=== PATIENT | female | born 1975 | race American Indian/Alaskan Native ===

== ENCOUNTER 2018-01-19 08:43 | Outpatient (CLI) | payer BC ==
--- NOTE | 2018-01-19 15:01 | Magnetic Resonance Report ---
BILATERAL BREAST MRI WITHOUT AND WITH CONTRAST: 01/19/18 08:43:00 CLINICAL: Family history of breast cancer and a left retroareolar asymmetry on a recent mammogram. COMPARISON:[facility] bilateral mammogram 05/12/17 and left breast ultrasound 10/03/17. TECHNIQUE: Axial 1.0-mm T1 without, axial high resolution 2.0-mm T2 and axial 1.0-mm dynamic Vibrant high-resolution postcontrast T1 fat saturation sequences on a 1.5 Cathleen magnet. The examination was performed with an 8 channel dedicated [place] breast coil. Post processing with CAD and subtraction was performed on an itBit workstation. 15.0 cc of Multihance was injected for the contrast portion of the exam. Consent was obtained prior to the administration of the contrast. FINDINGS: Right: Minimal background parenchymal enhancement. No mass or suspicious enhancement. No suspicious lymph nodes. Left: Minimal background parenchymal enhancement. No mass or suspicious enhancement. A 5 mm subareolar cyst at 7 o'clock correlates with a subareolar benign cyst identified by ultrasound at 6 o'clock. A 4 mm cyst at 6 o'clock 4.5 cm from the nipple has no apparent mammographic or ultrasound correlate. Normal parenchymal structures are identified in the retroareolar left breast at 6 o'clock where an asymmetry is marked on the mammogram. No suspicious lymph nodes. IMPRESSION: Negative study with a couple of subcentimeter benign cysts of the left breast at 7 o'clock subareolar and at 6 o'clock 4.5 cm from the nipple. The study is otherwise negative. RECOMMENDATION: Routine mammographic screening. BI-RADS 2 - - Benign
== END 2018-01-19 08:44 | disposition home or self-care (01) ==
LOC: SPVIMAG 08:43
PROVIDERS: ATTEND Surgery
DX: R92.8 Other abnormal and inconclusive findings on diagnostic imaging of breast (principal); Z80.3 Family history of malignant neoplasm of breast
CPT/HCPCS: A9577; C8908; 77059

== ENCOUNTER 2018-05-15 08:06 | Outpatient (CLI) | payer BC ==
--- NOTE | 2018-05-15 08:58 | Mammography Report ---
Bilateral mammogram a spot compression magnification of density upper outer right breast will compare to 05/12/17. CAD study utilized. Findings: Predominance adipose tissue bilaterally. Benign density left breast. New density upper outer right breast without microcalcification. Spot compression reveals effacement of the density. No mass is seen. Normal axilla. Impression: Benign findings. Annual followup recommended. BI-RADS CATEGORY: 2 = Benign ACR BI-RADS MAMMOGRAPHIC CODES: 0 = Needs additional imaging evaluation; 1 = Negative; 2 = Benign; 3 = Probably benign; 4 = Suspicious; 5 = Malignant; 6 = Known biopsy-proven malignancy COMMENT: 1. Dense breast tissue, i.e., adenosis, fibrocystic changes, etc., may obscure an underlying neoplasm. 2. Approximately 10% of cancers are not detected with mammography. 3. A negative mammography report should not delay biopsy if a clinically suspicious mass is present. COMMENT: Patient follow-up letters are generated in [employer].
== END 2018-05-15 08:07 | disposition home or self-care (01) ==
LOC: SPVWC 08:06
PROVIDERS: ATTEND Surgery
DX: Z12.31 Encounter for screening mammogram for malignant neoplasm of breast (principal)
CPT/HCPCS: 77067

== ENCOUNTER 2018-12-04 08:51 | Outpatient (CLI) | payer BC ==
--- NOTE | 2018-12-04 09:35 | Ultrasound Report ---
TARGETED LEFT BREAST ULTRASOUND HISTORY: Follow-up of a 6 mm retroareolar cyst at 6:00 COMPARISON: 10/03/[address] Espinoza FINDINGS: Focused sonographic evaluation upon the retroareolar 6:00 location of the right breast demo nstrates an oval relatively smooth complex cyst versus solid mass measuring 6 x 5 x 6 mm. It has homo geneous internal echoes and is slightly larger and more round than on the last exam. IMPRESSION A suspicious 6 mm complex cyst versus solid mass at 6:00 retroareolar. Recommend ultrasound-guided ne edle aspiration/biopsy. BIRADS 4: Suspicious abnormality. Signer Name: Lamine Barron MD Signed: 12/04/2018 9:31 AM Workstation Name: [id number]
== END 2018-12-04 08:52 | disposition home or self-care (01) ==
LOC: SPVWC 08:51
PROVIDERS: ATTEND Surgery
DX: R92.8 Other abnormal and inconclusive findings on diagnostic imaging of breast (principal)

== ENCOUNTER 2018-12-18 10:38 | Outpatient (CLI) | payer BC ==
--- NOTE | 2018-12-18 12:10 | Mammography Report ---
LEFT DIGITAL DIAGNOSTIC CLINICAL: For clip placement after ultrasound-guided biopsy. COMPARISON: 05/15/2018 FINDINGS: A biopsy clip is now identified and correlates with the cyst identified at 6:00. IMPRESSION: Concordant clip deployment. Signer Name: Lamine Barron MD Signed: 12/18/2018 12:06 PM Workstation Name: [id number]
--- NOTE | 2018-12-18 12:14 | Ultrasound Report ---
ULTRASOUND-GUIDED NEEDLE CORE BIOPSY LEFT BREAST WITH CLIP PLACEMENT CLINICAL: A mass at 6:00 retroareolar. FINDINGS: The procedure was explained to the patient and informed consent was obtained. Ultrasound demonstrated the previously identified oval smooth hypoechoic lesion at 6:00 retroareolar. It measures 8 x 4 x 7 mm and is more oval than on the last exam.. I marked the breast with a felt tip marker and a timeout was called. The skin was prepped with Chloro -Prep and anesthetized with 1% lidocaine. First attempt to aspirate the lesion with an 18-gauge needle. However, no fluid could be aspirated. N eedle core biopsy was then performed through small dermatotomy using ultrasound guidance, 2% lidocain e with epinephrine for deep anesthesia and a 14-gauge Achieve biopsy device. 4 cores were obtained an d placed in formalin. The lesion showed no collapse with biopsy. A clip was deployed within the lesio n. The patient tolerated the procedure well and there were no apparent complications. Hemostasis was ach ieved with minimal effort and a sterile dressing was applied. A post procedure mammogram demonstrated concordant clip deployment. She left the department in good c ondition and was given instructions for wound care and follow-up. IMPRESSION: Uncomplicated ultrasound guided needle core biopsy with clip placement left breast. Signer Name: Lamine Barron MD Signed: 12/18/2018 12:09 PM Workstation Name: [id number]
== END 2018-12-18 10:39 | disposition home or self-care (01) ==
LOC: SPVWC 10:38
PROVIDERS: ATTEND Surgery
DX: N63.24 Unspecified lump in the left breast, lower inner quadrant (principal); R92.8 Other abnormal and inconclusive findings on diagnostic imaging of breast
CPT/HCPCS: 19083; 77065; 88305; A4648

== ENCOUNTER 2019-01-16 06:06 | Day surgery (SDC) | payer BC ==
[~2019-01-16 06:06] MED LIST: BUPIVACAINE/PF (0.25%) 2.5 MG/ML 30 ML VIAL INFILTRATI ONE; LACTATED RINGERS 1,000 ML IV SCH; LIDOCAINE (1%) 10 MG/1 ML VIAL 20 ML MDV INFILTRATI ONE; MIDAZOLAM 2 MG/2 ML INJ IV NR; SODIUM CHLORIDE 0.9% IRR 1,500 ML BOTTLE IR ONE; ceFAZolin/Water 2 GM/20 ML 2 GM/20 ML SYRINGE IV NR
[2019-01-16] MEDS ORDERED: BACTERIOSTATIC SODIUM CHLORIDE 0.9% 30 ML VIAL INFILTRATI ONE (06:54)
[2019-01-16] MEDS ORDERED: ONDANSETRON 4 MG/2 ML INJ IV PRN (07:22)
--- NOTE | 2019-01-16 07:23 | Anesthesia Day of Surgery ---
Anesthesia Day of Surgery - Day of Surgery Patient Examined: Yes Patient H&P Reviewed: Yes Patient is NPO: Yes
--- NOTE | 2019-01-16 07:26 | Anesthesia Consultation ---
Anesthesia Consult and Med Hx Date of service: 01/16/19 - Airway Anesthetic Teeth Evaluation: Chipped ROM Head & Neck: Adequate Mental/Hyoid Distance: Adequate Mallampati Class: Class II Intubation Access Assessment: Good - Pre-Operative Health Status ASA Pre-Surgery Classification: ASA2 Proposed Anesthetic Plan: General - Central Nervous System Hx Psychiatric Problems: Yes (Anx) - Hematic Hx Sickle Cell Disease: Yes (TRAIT) - Other Systems Hx Alcohol Use: No Hx Substance Use: No Hx Cancer: No
[2019-01-16] MEDS ORDERED: ONDANSETRON 4 MG/2 ML INJ ONE (07:42)
[2019-01-16] MEDS ORDERED: fentaNYL 100 MCG/2 ML INJ ONE (07:42)
[2019-01-16] MEDS ORDERED: dexAMETHasone 20 MG/5 ML VIAL ONE (07:42)
[2019-01-16] MEDS ORDERED: LIDOCAINE MPF (2%) 20 MG/1 ML VIAL 5 ML ONE (07:42)
[2019-01-16] MEDS ORDERED: LIDOCAINE (1%) 10 MG/1 ML VIAL 20 ML MDV ONE (07:42)
[2019-01-16] MEDS ORDERED: PROPOFOL 200 MG/20 ML VIAL IV ONE (07:43)
[2019-01-16] MEDS ORDERED: LIDOCAINE (1%) 10 MG/1 ML VIAL 20 ML MDV INFILTRATI NR (08:12)
[2019-01-16] MEDS ORDERED: BUPIVACAINE/PF (0.25%) 2.5 MG/ML 30 ML VIAL INFILTRATI ONE ×2 (08:18→10:15)
[2019-01-16] MEDS ORDERED: LIDOCAINE (1%) 10 MG/1 ML VIAL 20 ML MDV INFILTRATI ONE (10:15)
[2019-01-16] MEDS ORDERED: BACITRACIN ZINC OINT 28.4 GM TP ONE ×2 (10:19→10:20)
[2019-01-16] MEDS ORDERED: SODIUM CHLORIDE 0.9% IRR 1,500 ML BOTTLE IR ONE (10:21)
--- NOTE | 2019-01-16 10:32 | Operative Report ---
Operative Report Operative Report: Operative Report: Date of Service: December 10, 2018 Preoperative diagnosis: Left breast radial scar of the lower outer quadrant/SA Postoperative diagnosis: Same Procedure: Left breast mass excisional biopsy of the lower outer quadrant/SA Surgeon: Vidya Espinoza M.D. Refrigerator Tester: Chyna Kingston M.D. Anesthesia: General Findings: Left breast radial scar mass excisional biopsy; radiograph specimen with clip and wire present Complications: None Drains: None Estimated blood loss: Minimal Disposition: PACU in good condition Indication for operative procedure: This is a 43-year-old lady with recent abnormal left breast ultrasound of suspicious mass with findings of increase in size with recommendations for biopsy. Ultrasound guided needle core biopsy was performed by Dr. Barron with findings of radial scar. Recommendations were to proceed with an excisional biopsy given benign high risk lesion for breast cancer and to obtain a definitive diagnosis. Patient wished to proceed with the above procedure. The patient was procedure in detail: Radiology placed wire to localize area of concern at location of clip around 6:00 SA. The patient was taken to the operating room and was laid supine. General anesthesia was administered. The left breast was prepped and draped in the normal sterile operative fashion. Timeout was performed. The wire was identified. Ultrasound was used as well to identify the area of concern noted around the 6:00 SA. A lateral periareolar breast incision was made with a 15 blade knife with dissection taken down to the subcutaneous tissues. First began raising of the lateral flap with removal of wire from the skin and dissection carried down posteriorly, followed by raising of the superior, medial, and inferior flaps being raised and taken down posteriorly. The wire was not encountered. The area of concern was then removed with the aid of the Bovie cautery. The specimen was sent to radiology with radiograph specimen with clip and wire present and then sent to pathology. Hemostasis was obtained using the Bovie cautery. Breast cavity was anesthesized with 1% lidocaine and quarter percent marcaine. The breast cavity was irrigated and suctioned. The deep breast tissues were approximated and closed using interrupted 3-0 Vicryl and skin brought together and closed using a running 4-0 Monocryl followed by dermabond. She tolerated surgery very well and was awakened from anesthesia without any complication and transported to PACU in good condition.
--- NOTE | 2019-01-16 10:39 | Mammography Report ---
NEEDLE LOCALIZATION AND HOOKWIRE PLACEMENT LEFT BREAST INDICATION: LT BREAST MASS. COMPARISON: 12/18/2018 FINDINGS: A timeout was called. The skin was prepped with iodine and needle localization and hookwire placement was performed using mammographic guidance and 1% lidocaine for anesthesia. A 5 cm Marcelino hookwire w as placed from a lateral approach to localize a retroareolar biopsy clip. Satisfactory placement was confirmed with orthogonal views. The needle was removed and the wire was left in place. The patient tolerated the procedure well and there were no apparent complications. IMPRESSION: Successful uncomplicated hookwire placement left breast. Signer Name: Lamine Barron MD Signed: 01/16/2019 10:34 AM Workstation Name: [id number]
--- NOTE | 2019-01-16 10:47 | Post Operative Note ---
Pre-op diagnosis: Left breast Radial Scar of Lower Outer Quadrant/Subareolar Post-op diagnosis: same Procedure: Left Breast Mass Excisional Biopsy of the Lower Outer Quadrant/Subareolar Anesthesia: LISA Surgeon: WAYNE BHATTI Driver Medic: JACK FRANCE Estimated blood loss: minimal Pathology: list Specimen disposition: to lab Condition: stable Disposition: PACU
--- NOTE | 2019-01-16 10:51 | Discharge Summary ---
Providers - Providers Date of Admission: 01/16/2019 Date of discharge: 01/16/19 Attending physician: WAYNE BHATTI Primary care physician: ARIELA BELLO MD Hospitalization Condition: Good Disposition: DC-01 TO HOME OR SELFCARE - Discharge Diagnoses (1) Radial scar of breast Status: Acute Core Measure Documentation - Palliative Care Palliative Care/ Comfort Measures: Not Applicable - Core Measures Any of the following diagnoses?: none - VTE Discharge Requirements Deep Vein Thrombosis/Pulmonary Embolism Present on Admission: No Has pt received <5 days of overlap therapy or INR<2.0: No Anticoagulant overlap therapy prescribed at discharge: No Contraindication No Overlap Therapy order at DC: Not Indicated - Acute SD Discharge Requirements Aspirin at discharge: No Reason for no aspirin on DC: Surgical contraindication CARLOS/ARB for LVSD if EF <40%: Not Applicable Statin for LDL = or >100 mg/dl on DC: Not Applicable - Heart Failure Discharge Requirements CARLOS/ARB for LVSD if EF <40%: Not Applicable - Stroke Discharge Requirements Statin for LDL = or >70 mg/dl on DC: Not Applicable Exam - Constitutional Vitals: Temp Pulse Resp BP Pulse Ox 98.0 F 87 18 128/66 100 01/16/19 06:45 01/16/19 06:45 01/16/19 06:45 01/16/19 06:45 01/16/19 06:45 General appearance: Present: no acute distress - EENT Eyes: Present: PERRL, EOM intact ENT: hearing intact, clear oral mucosa - Neck Neck: Present: supple, normal ROM - Respiratory Respiratory effort: normal - Cardiovascular Rhythm: regular - Extremities Extremities: no ischemia, No edema, Full ROM Peripheral Pulses: within normal limits - Abdominal General gastrointestinal: Present: deferred Female genitourinary: Present: deferred - Rectal Rectal Exam: deferred - Integumentary Integumentary: Present: clear, warm, dry - Musculoskeletal Musculoskeletal: strength equal bilaterally - Psychiatric Psychiatric: appropriate mood/affect, intact judgment & insight, memory intact Plan Activity: no driving until cleared by PCP (Until cleared by Surgeon) Weight Bearing Status: Full Weight Bearing Diet: regular Wound: keep clean and dry, per your surgeon's advice Special Instructions: no heavy lifting Follow up with: WAYNE BHATTI MD [Staff Physician] - 7 Days Prescriptions: HYDROcodone/APAP 5-325 [[place] 5/325] 1 each PO Q6HR PRN #12 tablet PRN Reason: Pain
[2019-01-16] MEDS: fentaNYL 100 MCG/2 ML INJ IV PRN ×2 (11:00→11:21)
--- NOTE | 2019-01-16 11:40 | Mammography Report ---
LEFT BREAST SPECIMEN RADIOGRAPH HISTORY: Surgical excision COMPARISON: 12/18/2018 FINDINGS/IMPRESSION: A localizer clip and a hookwire are identified within the specimen. Excision of the targeted lesion. Signer Name: Lamine Barron MD Signed: 01/16/2019 11:35 AM Workstation Name: [id number]
[2019-01-16 11:51] VITALS: BP 125/77
--- NOTE | 2019-01-16 15:55 | Post Anesthesia Evaluation ---
- Post Anesthesia Evaluation Patient Participated: Yes Airway Patent: Yes Stable Respiratory Function: Yes Nausea/Vomiting: No Temp > 96.8F: Yes Pain Manageable: Yes Adequeate Hydration: Yes Anesthesia Complications: No Block Receding Appropriately: Not Applicable Patient on Ventilator: No
== END 2019-01-16 06:07 | disposition home or self-care (01) ==
LOC: OR 06:06
PROVIDERS: ATTEND Surgery
DX: D24.2 Benign neoplasm of left breast (principal); N63.23 Unspecified lump in the left breast, lower outer quadrant; N64.89 Other specified disorders of breast; F41.9 Anxiety disorder, unspecified; Z98.890 Other specified postprocedural states; Z80.42 Family history of malignant neoplasm of prostate; Z79.899 Other long term (current) drug therapy
CPT/HCPCS: 19125; 19281; 76098; 88307; J0690; J1100; J2250; J2405; J2704; J3010; J7120

== ENCOUNTER 2020-06-04 09:34 | Outpatient (CLI) | payer BC ==
--- NOTE | 2020-06-04 11:33 | Mammography Report ---
DIGITAL SCREENING MAMMOGRAM WITH TOMOSYNTHESIS WITH CAD, 06/04/2020 CLINICAL INFORMATION / INDICATION: Routine Screening Mammography. TECHNIQUE: Digital bilateral 2D and 3D mammography with tomosynthesis was obtained in the craniocaud al and mediolateral oblique projections. Computer-Aided Detection (CAD) analysis was used for interp retation of this study. COMPARISON: 05/15/2018, 06/03/2019 FINDINGS: Breast Density: There are scattered areas of fibroglandular density. No dominant mass, suspicious calcifications, or architectural distortion in either breast. Bilateral postsurgical scars. Stable right subareolar nodular density. IMPRESSION: No mammographic evidence of malignancy. Follow up recommendation: Routine yearly BI-RADS Category 2: Benign. A "normal" or negative report should not discourage follow up or biopsy of a clinically significant f inding. A written summary of these findings will be mailed to the patient. The patient will be entered into a mammography reporting system which will generate a reminder letter for the patient's next appointmen t at the appropriate interval. The [employer] recommends yearly mammograms starting at age 40 and continuing as l irena as a woman is in good health. Breast MRI is recommended for women with an approximate 20-25% or greater lifetime risk of breast cancer, including women with a strong family history of breast or ova mary cancer or who have been treated for Hodgkin's disease. Signer Name: Elsie Meier MD Signed: 06/04/2020 11:28 AM Workstation Name: [email or web address]
== END 2020-06-04 09:35 | disposition home or self-care (01) ==
LOC: SPVWC 09:34
PROVIDERS: ATTEND Surgery
DX: Z12.31 Encounter for screening mammogram for malignant neoplasm of breast (principal)
CPT/HCPCS: 77063; 77067

== ENCOUNTER 2020-07-22 09:31 | Outpatient (CLI) | payer BC ==
--- NOTE | 2020-07-24 10:15 | Magnetic Resonance Report ---
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 TECHNIQUE: Axial T1 and T2-weighted fat sat images were obtained precontrast. Gadolinium-based contra st was injected intravenously and serial axial T1 weighted images with fat saturation were obtained. 3-D MIP projections, kinetic analysis, and subtraction imaging were utilized to evaluate. A dedicated 8-channel breast coil was used for image acquisition. COMPARISON: Screening mammogram dated 06/04/2020. Breast MRI dated 01/19/2018. FINDINGS: BREAST DENSITY: Scattered areas of fibroglandular density. BACKGROUND ENHANCEMENT: Low level background enhancement within both breasts. RIGHT BREAST: No dominant mass or suspicious area of enhancement in the right breast. LEFT BREAST: No dominant mass or suspicious area of enhancement in the left breast. AXILLAE: No pathologically enlarged axillary lymph nodes. ADDITIONAL FINDINGS: Limited imaging of the thorax and upper abdomen demonstrates no focal abnormalit y. IMPRESSION: 1. No MRI evidence of malignancy. Unless otherwise clinically indicated, continued annual screening m ammography is recommended. Follow up recommendation: Routine yearly BI-RADS Category 1: Negative. Signer Name: Dmitry Mann MD Signed: 07/24/2020 10:11 AM Workstation Name: [id number]
== END 2020-07-22 09:32 | disposition home or self-care (01) ==
LOC: SPVIMAG 09:31
PROVIDERS: ATTEND Surgery
DX: N60.11 Diffuse cystic mastopathy of right breast (principal); N60.12 Diffuse cystic mastopathy of left breast; N64.4 Mastodynia
CPT/HCPCS: A9575; C8908; 77049